=== PATIENT | female | born 1940 | race Caucasian/White ===

== ENCOUNTER 2016-10-16 15:45 | Emergency (ER) | payer MEDICARE ==
[~2016-10-16] VITALS: Ht 149.9 cm; Wt 48.0 kg
[~2016-10-16 15:45] MED LIST: ALBU8I INH; AMLO5TAB22 PO; ASPI81TA11 PO; LOSA50TA PO; METO25 PO; PLAV75TA PO; VITA20002 PO
[2016-10-16 15:47] VITALS: BP 143/81; PULSE 78; RESP 15; TEMP 97.8; O2SAT 98
--- NOTE | 2016-10-16 15:55 | PD ---
Physical Exam Time Seen by Provider: 15:50 Narrative 76yo F c/o mid-Sternal chest pain started Sunday w/ Left arm weakness and hand tingling; w/ SOB. Hx COPD. 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 Patient stable. Patient seen in triage. Awaiting bed placement. Data Data Last Documented VS Vital Signs Date Time Temp Pulse Resp B/P Pulse Ox O2 Delivery O2 Flow Rate FiO2 10/16/16 15:47 97.8 78 15 143/81 98 MDM Supervised Visit with KOREY: Marcela Ny Oct 16, 2016 15:55
--- NOTE | 2016-10-17 08:58 | EKG ---
Date Performed: 10/16/2016 Time Performed: 16:04:37 PTAGE: 76 years EKG: Sinus rhythm NONSPECIFIC ST & T-WAVE ABNORMALITY BORDERLINE ECG PREVIOUS TRACING : 04/21/2015 11.08 Compared to previous tracing, nonspecific ST/T changes are now present. DOCTOR: Price Au Interpretating Date/Time 10/17/2016 08:57:31
== END 2016-10-16 17:16 | disposition left against medical advice (07) ==
LOC: NED 15:45
DX: R07.9 Chest pain, unspecified (principal); R20.2 Paresthesia of skin; R06.02 Shortness of breath; Z87.09 Personal history of other diseases of the respiratory system
CPT/HCPCS: 93005; 99281

== ENCOUNTER 2018-06-10 16:14 | Observation (INO) ==
--- NOTE | 2018-06-10 16:52 | ED ---
HPI General Chief Complaint: Shortness of Breath/Dyspnea Stated Complaint: MD sent-poss surgery Time Seen by Provider: 06/10/18 16:40 Source: patient and RN notes reviewed Mode of arrival: ambulatory Limitations: no limitations History of Present Illness 77-year-old female presents to the emergency department stating she was sent by her primary care physician on Sunday to have fluid removed from her lungs. Patient states that she has been short of breath for the past 2 weeks. She does have history of COPD and has been using nebulizers at home. She states that she had a chest x-ray done outpatient on Sunday and was called by her primary care physician, Dr. Dwight Garza and was instructed to come the emergency department then. However, she is able to take care of so she comes today. Patient reports shortness of breath. She denies chest pain. No abdominal pain. No nausea, vomiting, diarrhea. She denies any history of CHF. No other symptoms or complaints. Moderate severity. MD Complaint: Reports shortness of breath Onset (ago): week(s) (2) Severity: moderate Consistency/Duration: constant Relieving factors: nothing Exacerbating factors: nothing Known history of: Reports COPD Associated symptoms: Denies chest pain, pain with inspiration, fever, cough, orthopnea, lower extremity pain, polyuria, polydipsia, paresthesias, palpitations, carpopedal spasm, hemoptysis, nausea/vomiting and abdominal pain Related Data Home Medications Medication Instructions Recorded Confirmed albuterol sulfate [Ventolin HFA] 2 puff INHALATION QID 06/10/18 06/10/18 amlodipine 5 mg PO DAILY 06/10/18 06/10/18 aspirin [Aspirin Low Dose] 81 mg PO DAILY 06/10/18 06/10/18 cholecalciferol (vitamin D3) 3,000 unit PO DAILY 06/10/18 06/10/18 [Vitamin D3] clopidogrel [Plavix] 75 mg PO DAILY 06/10/18 06/10/18 losartan 50 mg PO DAILY 06/10/18 06/10/18 metoprolol tartrate 25 mg PO BID 06/10/18 06/10/18 Allergies Allergy/AdvReac Type Severity Reaction Status Date / Time diatrizoate meglumine Allergy Severe Unverified 02/06/17 14:30 gadobenic acid Allergy Severe Unverified 02/06/17 14:30 gadodiamide Allergy Severe Unverified 02/06/17 14:30 gadoteridol Allergy Severe Unverified 02/06/17 14:30 iodixanol Allergy Severe Unverified 02/06/17 14:30 iohexol Allergy Severe Unverified 02/06/17 14:30 Review of Systems ROS: all other systems reviewed are negative [facility] Medical History Medical History COPD (chronic obstructive pulmonary disease) (Acute) DVT (deep venous thrombosis) (Acute) Hypertension (Acute) Kidney carcinoma (Acute) AK (myocardial infarction) (Acute) Surgical History Surgical History S/P appy (Acute) Social History Social History Substance History: No History of Abuse Smoking Status: Current some day smoker Tobacco Type: Cigarettes How Often Do You Have a Drink Containing Alcohol: Monthly or less Recent Travel in [facility] within the Last 8 Weeks: No Recent Out of Country Travel within the Last 8 Weeks: No Exam Narrative Exam Narrative: GENERAL: Well-nourished, well-developed male patient, afebrile SKIN: Focused skin assessment warm/dry. HEAD: Normocephalic. atraumatic EYES: No scleral icterus. No injection or drainage. NECK: Supple, trachea midline. No JVD or lymphadenopathy. CARDIOVASCULAR: Regular rate and rhythm without murmurs, gallops, or rubs. RESPIRATORY: Breath sounds equal bilaterally. Patient is tachypneic. Diminished lung sounds in the right base. GASTROINTESTINAL: Abdomen soft, non-tender, nondistended. MUSCULOSKELETAL: No cyanosis, or edema. BACK: Nontender without obvious deformity. No CVA tenderness. Course Initial Documented Vital Signs Temperature 98.1 F 06/10/18 16:19 Pulse Rate 105 H 06/10/18 16:19 Respiratory Rate 24 06/10/18 16:19 Blood Pressure 143/62 H 06/10/18 16:19 Pulse Oximetry 97 06/10/18 16:19 Last Documented Vital Signs Temperature 98.1 F 06/10/18 16:19 Pulse Rate 92 H 06/10/18 18:50 Respiratory Rate 18 06/10/18 18:50 Blood Pressure 119/67 06/10/18 16:22 Pulse Oximetry 96 06/10/18 16:43 Medical Decision Making KOREY Attestation KOREY supervised visit: Yes Attestation: I, Dr. Easton, have reviewed the advance practice practitioner' s documentation and am in agreement, met with the patient face to face, made the diagnosis, and the medical decision making was done by me. *My assessment and Findings: 77-year-old female who presents to the emergency department for shortness of breath. Patient has had increasing exertional dyspnea for the last several weeks which is progressively worsened. The patient now has difficulty walking from the parking lot into the store and from her house to her car secondary to the shortness of breath. The patient does have a history of COPD and pneumonia. The patient denies any history of CHF. The patient was seen by her primary physician, Dr. Dwight Garza, who ordered an x-ray revealed an effusion. The patient was advised last week to come the emergency department and be admitted to have it drained, however, did not come to the emergency department until the day. The patient's symptoms are better if she lays on the right side or on her stomach, is worse when she lays supine and with exertion. Symptoms are moderate and progressive. Chest x-ray does reveal a right pleural effusion, the patient will be a 23-hour observation for ultrasound to evaluate for possible ultrasound-guided thoracentesis. The patient may also benefit from echocardiogram for possible cardiomyopathy/CHF. That echo on-call ON [facility] OF [facility] physician was paged for 23-hour observation. MDM Narrative Medical decision making narrative: 77-year-old female presents to the emergency department for evaluation of shortness of breath for 2 weeks, sent by her primary care physician for. EKG shows sinus rhythm, heart rate 95, no acute ST changes. CBC, CMP, CK, troponin, magnesium, BNP, PTT, PT/INR, chest x-ray ordered and pending. CBC shows slight anemia hemoglobin 10.5, hematocrit 30.3. CMP shows no acute abnormality. CK is 50. Troponin is less than 0.02. BNP is 95. PTT is 29.0. PT/INR is 10.0/1.0. Chest x-ray shows Hyperinflation characteristic of COPD.2. Small right pleural effusion and right basilar density could be atelectasis or infiltrate. Patient will be admitted for possible ultrasound-guided thoracentesis, echocardiogram for possible cardiomyopathy/CHF as she has exertional dyspnea. Dr. Cuellar accepted admission. Medical Screen Exam Complete: Yes Emergency Medical Condition: Yes Differential Diagnosis Differential Diagnosis: pleural effusion vs. CHF vs. COPD exacerbation vs. PE Medical Records Medical records reviewed: Yes I reviewed the patient's medical records. Lab Data Result diagrams: 06/10/18 17:05 06/10/18 17:05 Lab Results 06/10/18 06/10/18 06/10/18 Range/Units 17:05 17:05 17:05 WBC 10.9 (4.0-11.0) th/mm3 RBC 3.59 L (4.00-5.30) mil/mm3 Hgb 10.5 L (11.6-15.3) gm/dL Hct 30.3 L (35.0-46.0) % MCV 84.5 (80.0-100.0) fL MCH 29.4 (27.0-34.0) pg MCHC 34.8 (32.0-36.0) % RDW 15.3 (11.6-17.2) % Plt Count 673 H (150-450) th/mm3 MPV 7.1 (7.0-11.0) fL Neut % (Auto) 76.6 H (16.0-70.0) % Lymph % (Auto) 10.8 (9.0-44.0) % Perkins % (Auto) 11.1 H (0.0-8.0) % Eos % (Auto) 0.4 (0.0-4.0) % Baso % (Auto) 1.1 (0.0-2.0) % Neut # (Auto) 8.3 H (1.8-7.7) th/mm3 Lymph # (Auto) 1.2 (1.0-4.8) th/mm3 Perkins # (Auto) 1.2 H (0.0-0.9) th/mm3 Eos # (Auto) 0.0 (0.0-0.4) th/mm3 Baso # (Auto) 0.1 (0.0-0.2) th/mm3 WBC Differential . Differential Comment Auto diff final PT 10.0 (9.8-11.6) sec INR 1.0 Ratio APTT 29.0 (23.4-31.7) sec Sodium 139 (136-145) meq/L Potassium 4.0 (3.5-5.1) meq/L Chloride 106 (98-107) meq/L Carbon Dioxide 20.7 L (21.0-32.0) meq/L Anion Gap 12 (5-15) meq/L BUN 14 (7-18) mg/dL Creatinine 0.77 (0.50-1.00) mg/dL Estimated GFR 73 L (>89) mL/min Random Glucose 111 H (74-106) mg/dL Calcium 8.5 (8.5-10.1) mg/dL Magnesium 2.2 (1.5-2.5) mg/dL Total Bilirubin 0.3 (0.2-1.0) mg/dL AST 26 (15-37) U/L ALT 27 (10-53) U/L Alkaline Phosphatase 112 (45-117) U/L Total Creatine Kinase 50 (26-192) U/L Troponin I Less than 0.02 L (0.02-0.05) ng/mL B-Natriuretic Peptide (0-100) pg/mL Total Protein 7.1 (6.4-8.2) g/dL Albumin 2.1 L (3.4-5.0) g/dL 06/10/18 Range/Units 17:05 WBC (4.0-11.0) th/mm3 RBC (4.00-5.30) mil/mm3 Hgb (11.6-15.3) gm/dL Hct (35.0-46.0) % MCV (80.0-100.0) fL MCH (27.0-34.0) pg MCHC (32.0-36.0) % RDW (11.6-17.2) % Plt Count (150-450) th/mm3 MPV (7.0-11.0) fL Neut % (Auto) (16.0-70.0) % Lymph % (Auto) (9.0-44.0) % Perkins % (Auto) (0.0-8.0) % Eos % (Auto) (0.0-4.0) % Baso % (Auto) (0.0-2.0) % Neut # (Auto) (1.8-7.7) th/mm3 Lymph # (Auto) (1.0-4.8) th/mm3 Perkins # (Auto) (0.0-0.9) th/mm3 Eos # (Auto) (0.0-0.4) th/mm3 Baso # (Auto) (0.0-0.2) th/mm3 WBC Differential Differential Comment PT (9.8-11.6) sec INR Ratio APTT (23.4-31.7) sec Sodium (136-145) meq/L Potassium (3.5-5.1) meq/L Chloride (98-107) meq/L Carbon Dioxide (21.0-32.0) meq/L Anion Gap (5-15) meq/L BUN (7-18) mg/dL Creatinine (0.50-1.00) mg/dL Estimated GFR (>89) mL/min Random Glucose (74-106) mg/dL Calcium (8.5-10.1) mg/dL Magnesium (1.5-2.5) mg/dL Total Bilirubin (0.2-1.0) mg/dL AST (15-37) U/L ALT (10-53) U/L Alkaline Phosphatase (45-117) U/L Total Creatine Kinase (26-192) U/L Troponin I (0.02-0.05) ng/mL B-Natriuretic Peptide 95 (0-100) pg/mL Total Protein (6.4-8.2) g/dL Albumin (3.4-5.0) g/dL Imaging Data Radiologist's impression: Chest X-Ray 06/10/18 16:43 CONCLUSION: 1. Hyperinflation characteristic of COPD. 2. Small right pleural effusion and right basilar density could be atelectasis or infiltrate. Discharge Plan Discharge Disposition Patient Disposition: ED Admit(ED Internal Use Only) Discharge Order Discharge Orders: ED Use Only Admit Order (Routine); Ordered 06/10/18 Ordered By: Afshan Camarena Discharge Details Diagnosis: Exertional dyspnea, Pleural effusion Physicians Team ED Provider: Wes Easton ED Midlevel Provider: Afshan Camarena Primary Care Provider: Dwight Garza Rxs /Orders / Referrals /Forms Prescriptions: No Action losartan 50 mg Tablet 50 mg PO DAILY RF: 0 clopidogrel [Plavix] 75 mg Tablet 75 mg PO DAILY RF: 0 amlodipine 5 mg Tablet 5 mg PO DAILY RF: 0 aspirin [Aspirin Low Dose] 81 mg Tablet,Delayed Release (Dr/Ec) 81 mg PO DAILY RF: 0 albuterol sulfate [Ventolin HFA] 90 mcg/actuation Hfa Aerosol Inhaler 2 puff INHALATION QID RF: 0 cholecalciferol (vitamin D3) [Vitamin D3] 1,000 unit Capsule 3,000 unit PO DAILY RF: 0 metoprolol tartrate 25 mg Tablet 25 mg PO BID RF: 0 Discharge Interventions Interventions: Vital Signs Last Done: 06/10/18 16:22 Status ED Status: Pending Admission
--- NOTE | 2018-06-10 17:08 | XR ---
EXAM DATE: 06/10/2018 5:04 PM EST AGE/SEX: 77 years / Female INDICATIONS: Short of breath. CLINICAL DATA: This is the patient's initial encounter. Patient reports that signs and symptoms have been present for 2 days and indicates a pain score of 0/10. MEDICAL/SURGICAL HISTORY: Chronic obstructive pulmonary disease. None. COMPARISON: . FINDINGS: A single AP view of the chest demonstrates hyperinflation. Small right pleural effusion and right bas ilar density. Calcified granuloma right upper lobe. Tortuous thoracic aorta. Scoliosis The cardiomedi astinal contours are unremarkable. Osseous structures are intact. CONCLUSION: 1. Hyperinflation characteristic of COPD. 2. Small right pleural effusion and right basilar density could be atelectasis or infiltrate. Electronically signed by: Ang Martinez MD Board Certified Radiologist 06/10/2018 5:07 PM EST
[2018-06-10 17:34] LABS: Baso # (Auto) 0.1 th/mm3 (0.0-0.2); Baso % (Auto) 1.1 % (0.0-2.0); Eos % (Auto) 0.4 % (0.0-4.0); Hematocrit 30.3 % (35.0-46.0); Hemoglobin 10.5 gm/dL (11.6-15.3); Lymph # (Auto) 1.2 th/mm3 (1.0-4.8); Lymph % (Auto) 10.8 % (9.0-44.0); Mean Corpuscular HGB Conc 34.8 % (32.0-36.0); Mean Corpuscular Hemoglobin 29.4 pg (27.0-34.0); Mean Corpuscular Volume 84.5 fL (80.0-100.0); Mean Platelet Volume 7.1 fL (7.0-11.0); Mono # (Auto) 1.2 th/mm3 (0.0-0.9); Mono % (Auto) 11.1 % (0.0-8.0); Neut # (Auto) 8.3 th/mm3 (1.8-7.7); Neut % (Auto) 76.6 % (16.0-70.0); Platelet Count 673 th/mm3 (150-450); Red Blood Count 3.59 mil/mm3 (4.00-5.30); Red Cell Distribution Width 15.3 % (11.6-17.2); White Blood Count 10.9 th/mm3 (4.0-11.0)
[2018-06-10 17:59] LABS: Albumin 2.1 g/dL (3.4-5.0); Anion Gap 12 meq/L (5-15); Aspartate Aminotransferase 26 U/L (15-37); Blood Urea Nitrogen 14 mg/dL (7-18); Calcium 8.5 mg/dL (8.5-10.1); Carbon Dioxide 20.7 meq/L (21.0-32.0); Chloride 106 meq/L (98-107); Glomerular Filtration Rate 73 mL/min (>89); Glucose,Random 111 mg/dL (74-106); Magnesium 2.2 mg/dL (1.5-2.5); Sodium 139 meq/L (136-145)
[2018-06-10 18:06] LABS: Alanine Aminotransferase 27 U/L (10-53); Alkaline Phosphatase 112 U/L (45-117); Creatine Kinase 50 U/L (26-192); Total Protein 7.1 g/dL (6.4-8.2)
[2018-06-10] MEDS ORDERED: Acetaminophen 325 MG Tablet PO PRN (20:09)
[2018-06-10] MEDS ORDERED: Bisacodyl 10 MG Supp RECTAL PRN (20:09)
--- NOTE | 2018-06-10 20:20 | P.HPFP ---
History of Present Illness Primary Care Physician: Dwight Garza MD History of Present Illness: This is a very pleasant 77-year-old female, a patient of Dr. Garza, who presented to the ER today for shortness of breath. The patient endorses that she has been having increased shortness of breath for the past [address] Garza on Sunday who ordered a chest x-ray showing a moderate right pleural effusion. She was instructed to go to the emergency department however due to the of the patch she did not go. She called Dr. Garza's office today with ongoing shortness of breath and was referred to the emergency department where she has now presented. The patient has a pulse ox of 96% on room air but endorses significant dyspnea. She denies any recent fever, chills , or cough. She does have known history of COPD and is on bronchodilators for this. She reports she was ill with influenza in February and since then her exercise tolerance has been quite poor, especially over the past 3 weeks with difficulty walking throughout the grocery store and with placing housing for sale signs. 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 - Diagnosis (1) Pleural effusion, right (2) Exertional dyspnea (3) Thrombocytosis Review of Systems All other systems reviewed negative except as stated in HPI [facility] - History History Provided By: Patient - Medical History Medical History: Medical History (Last Updated 06/10/18 @ 16:59 by Caty Shafer) COPD (chronic obstructive pulmonary disease) DVT (deep venous thrombosis) Hypertension Kidney carcinoma LA (myocardial infarction) - Surgical History Surgical History: Surgical History (Last Updated 06/10/18 @ 16:59 by Caty Shafer) S/P appy - Tobacco History Tobacco Use In Past 30 Days: Yes Smoking Status: Current some day smoker Tobacco Type: Cigarettes - Alcohol History How Often Do You Have a Drink Containing Alcohol: Monthly or less - Substance Use History Substance History: No History of Abuse - Travel History Recent Travel in the [facility] Within the Last 8 Weeks: No Recent Travel Out of the Country Within the Last 8 Weeks: No - Immunization History Tetanus Immunization: Unsure Medications and Allergies Active Medications: Active Medications Acetaminophen (Tylenol) 650 mg PO Q4H PRN PRN Reason: Temp > 100.4 Al Hydroxide/Mg Hydroxide (Milk Of Magnesia Liq) 30 ml PO Q12H PRN PRN Reason: Mild Constipation Albuterol (Duoneb Neb (Walter)) 1 ampul NEB Q6HR WHILE AWAKE NEB [facility] Aspirin (Ecotrin) 81 mg PO DAILY [facility] Bisacodyl (Dulcolax Supp) 10 mg RECTAL DAILY PRN PRN Reason: SEVERE CONSITIPATION Clopidogrel Bisulfate (Plavix) 75 mg PO DAILY [facility] Famotidine (Pepcid) 20 mg PO HS [facility] Lactulose (Lactulose Liq) 30 ml PO DAILY PRN PRN Reason: SEVERE CONSITIPATION Losartan Potassium (Cozaar) 100 mg PO DAILY [facility] Methylprednisolone Sodium Succinate (Solumedrol Inj) 125 mg IV.PUSH ONCE ONE Stop: 06/10/18 20:12 Metoprolol Tartrate (Lopressor) 25 mg PO BID [facility] Ondansetron HCl (Zofran Inj) 4 mg IV.PUSH Q6H PRN PRN Reason: NAUSEA OR VOMITING Sennosides (Senokot) 17.2 mg PO Q12H PRN PRN Reason: Moderate Constipation Sodium Chloride (Ns Flush) 2 ml IV.FLUSH BID [facility] Vitamin D (Vitamin D3) 3,000 unit PO DAILY [facility] Allergies Allergy/AdvReac Type Severity Reaction Status Date / Time diatrizoate meglumine Allergy Severe Unverified 02/06/17 14:30 gadobenic acid Allergy Severe Unverified 02/06/17 14:30 gadodiamide Allergy Severe Unverified 02/06/17 14:30 gadoteridol Allergy Severe Unverified 02/06/17 14:30 iodixanol Allergy Severe Unverified 02/06/17 14:30 iohexol Allergy Severe Unverified 02/06/17 14:30 Home Medications Medication Instructions Recorded Confirmed Type albuterol sulfate [Ventolin HFA] 2 puff INHALATION QID 06/10/18 06/10/18 History amlodipine 5 mg PO DAILY 06/10/18 06/10/18 History aspirin [Aspirin Low Dose] 81 mg PO DAILY 06/10/18 06/10/18 History cholecalciferol (vitamin D3) 3,000 unit PO DAILY 06/10/18 06/10/18 History [Vitamin D3] clopidogrel [Plavix] 75 mg PO DAILY 06/10/18 06/10/18 History losartan 50 mg PO DAILY 06/10/18 06/10/18 History metoprolol tartrate 25 mg PO BID 06/10/18 06/10/18 History Exam Vital signs: Vital Signs 06/10/18 16:19 06/10/18 16:22 06/10/18 16:43 Temperature 98.1 F Pulse Rate 105 H 92 H Respiratory Rate 24 18 Blood Pressure 143/62 H 119/67 Pulse Oximetry 97 96 96 06/10/18 18:50 Temperature Pulse Rate 92 H Respiratory Rate 18 Blood Pressure Pulse Oximetry Intake & Output 06/10/18 06/10/18 06/11/18 06:59 18:59 06:59 Weight 39.463 kg Narrative: GENERAL: This is a petite, cachectic appearing elderly female who is in mild respiratory distress but speaking in full sentences. HEENT: Moist mucous membranes, oropharynx patent, pupils equal and reactive to light Neck: Supple without lymphadenopathy or JVD CARDIOVASCULAR: Regular rate and rhythm without murmurs, gallops, or rubs. RESPIRATORY: Decreased breath sounds in right mid to lower lung field. Otherwise lungs are clear to auscultation without wheezes rhonchi. Pulse ox 96 % on room air. Mild increased work of breathing. GASTROINTESTINAL: Abdomen soft, non-tender, nondistended. Normal active bowel sounds MUSCULOSKELETAL: Extremities without clubbing, cyanosis, or edema. She has excellent dorsalis pedis pulses bilaterally. NEURO: Alert & Oriented x4 to person, place, time, situation. Moves all ext x4 SKIN: Warm and dry without rash Results - Labs Result diagrams: 06/10/18 17:05 06/10/18 17:05 Abnormal lab results 06/10/18 06/10/18 Range/Units 17:05 17:05 RBC 3.59 L (4.00-5.30) mil/mm3 Hgb 10.5 L (11.6-15.3) gm/dL Hct 30.3 L (35.0-46.0) % Plt Count 673 H (150-450) th/mm3 Neut % (Auto) 76.6 H (16.0-70.0) % Collier % (Auto) 11.1 H (0.0-8.0) % Neut # (Auto) 8.3 H (1.8-7.7) th/mm3 Collier # (Auto) 1.2 H (0.0-0.9) th/mm3 Carbon Dioxide 20.7 L (21.0-32.0) meq/L Estimated GFR 73 L (>89) mL/min Random Glucose 111 H (74-106) mg/dL Troponin I Less than 0.02 L (0.02-0.05) ng/mL Albumin 2.1 L (3.4-5.0) g/dL Short CBC 06/10/18 Range/Units 17:05 WBC 10.9 (4.0-11.0) th/mm3 Hgb 10.5 L (11.6-15.3) gm/dL Hct 30.3 L (35.0-46.0) % Plt Count 673 H (150-450) th/mm3 BMP 06/10/18 17:05 Sodium 139 Potassium 4.0 Chloride 106 Carbon Dioxide 20.7 L BUN 14 Creatinine 0.77 Calcium 8.5 Cardiac Enzymes 06/10/18 Range/Units 17:05 Total Creatine Kinase 50 (26-192) U/L Troponin I Less than 0.02 L (0.02-0.05) ng/mL Liver Function 06/10/18 Range/Units 17:05 Total Bilirubin 0.3 (0.2-1.0) mg/dL AST 26 (15-37) U/L ALT 27 (10-53) U/L Alkaline Phosphatase 112 (45-117) U/L Albumin 2.1 L (3.4-5.0) g/dL - Imaging Impressions Chest X-Ray 06/10/18 16:43 CONCLUSION: 1. Hyperinflation characteristic of COPD. 2. Small right pleural effusion and right basilar density could be atelectasis or infiltrate. Caprini VTE Risk Assessment Caprini VTE Risk Assessment: Moderate/High Risk (score >= 2) Caprini Risk Assessment Model: Point Value = 1 Point Value = 2 Point Value = 3 Point Value = 5 Age 41-60 Minor surgery BMI > 25 kg/m2 Swollen legs Varicose veins or History of unexplained or recurrent spontaneous Oral contraceptives or hormone replacement Sepsis (< 1 month) Serious lung disease, including pneumonia (< 1 month) Abnormal pulmonary function Acute myocardial infarction Congestive heart failure (< 1 month) History of inflammatory bowel disease Medical patient at bed rest Age 61-74 Arthroscopic surgery Major open surgery (> 45 min) Laparoscopic surgery (> 45 min) Malignancy Confined to bed (> 72 hours) Immobilizing plaster cast Central venous access Age >= 75 History of VTE Family history of VTE Factor V Leiden Prothrombin [id number] Lupus anticoagulant Anticardiolipin antibodies Elevated serum homocysteine Heparin-induced thrombocytopenia Other congenital or acquired thrombophilia Stroke (< 1 month) Elective arthroplasty Hip, pelvis, or leg fracture Acute spinal cord injury (< 1 month) Prophylaxis Regimen: Total Risk Factor Score Risk Level Prophylaxis Regimen 0-1 Low Early ambulation 2 Moderate Order ONE of the following: *Sequential Compression Device (SCD) *Heparin 5000 units SQ BID 3-4 Higher Order ONE of the following medications: *Heparin 5000 units SQ TID *Enoxaparin/Lovenox 40 mg SQ daily (WT < 150 kg, CrCl > 30 mL/min) *Enoxaparin/Lovenox 30 mg SQ daily (WT < 150 kg, CrCl > 10-29 mL/min) *Enoxaparin/Lovenox 30 mg SQ BID (WT < 150 kg, CrCl > 30 mL/min) AND/OR *Sequential Compression Device (SCD) 5 or more Highest Order ONE of the following medications: *Heparin 5000 units SQ TID (Preferred with Epidurals) *Enoxaparin/Lovenox 40 mg SQ daily (WT < 150 kg, CrCl > 30 mL/min) *Enoxaparin/Lovenox 30 mg SQ daily (WT < 150 kg, CrCl > 10-29 mL/min) *Enoxaparin/Lovenox 30 mg SQ BID (WT < 150 kg, CrCl > 30 mL/min) AND *Sequential Compression Device (SCD) Assessment and Plan - Assessment (1) Pleural effusion, right Code(s): J90 - Pleural effusion, not elsewhere classified Status: Acute (2) Exertional dyspnea Code(s): R06.09 - Other forms of dyspnea Status: Acute (3) Thrombocytosis Code(s): D47.3 - Essential (hemorrhagic) thrombocythemia Status: Acute - Assessment and Plan We will plan for ultrasound tomorrow morning to see if right thoracentesis can be performed. Etiology of the pleural effusion is not clear at this time. I will check a 2D echocardiogram. Consider pulmonology consultation. Will continue on her bronchodilators. She is currently not requiring oxygen. I will place her on telemetry. Oxygen as needed and I will obtain an oxygen walk test with the respiratory therapist. I will give her a one-time dose of Solu- Medrol to see if this assists with her breathing however I do not hear any wheezing on exam. The thrombocytosis seems to be a new problem as per review of her previous labs. We will repeat a CBC in the morning. Coronary artery disease status post RCA stent in 2002 and 2014, Peripheral arterial disease status post right external artery stent in 2014 -continue aspirin, Plavix. Apparently she is statin intolerant. Continue her on the beta -flavia and ARB. DVT prophylaxis with SCDs.
[2018-06-10] MEDS ORDERED: levoFLOXacin 750 MG Tablet PO SCH (21:00)
[2018-06-10] MEDS ORDERED: MethylPREDNISolone Sod Succinate Inj 125 MG/2 ML Vial IV.PUSH ONE (21:00)
[2018-06-10] MEDS: Famotidine 20 MG Tablet PO SCH ×2 (23:10→23:24)
[2018-06-10] MEDS: Metoprolol Tartrate 25 MG Tablet PO SCH (23:10)
[2018-06-11 07:01] LABS: Baso % (Auto) 0.3 % (0.0-2.0); Hematocrit 32.3 % (35.0-46.0); Hemoglobin 10.7 gm/dL (11.6-15.3); Lymph # (Auto) 0.5 th/mm3 (1.0-4.8); Lymph % (Auto) 6.1 % (9.0-44.0); Mean Corpuscular HGB Conc 33.1 % (32.0-36.0); Mean Corpuscular Hemoglobin 28.2 pg (27.0-34.0); Mean Corpuscular Volume 85.3 fL (80.0-100.0); Mean Platelet Volume 7.3 fL (7.0-11.0); Mono # (Auto) 0.2 th/mm3 (0.0-0.9); Mono % (Auto) 2.4 % (0.0-8.0); Neut # (Auto) 7.5 th/mm3 (1.8-7.7); Neut % (Auto) 91.2 % (16.0-70.0); Platelet Count 667 th/mm3 (150-450); Red Blood Count 3.78 mil/mm3 (4.00-5.30); Red Cell Distribution Width 14.9 % (11.6-17.2); White Blood Count 8.2 th/mm3 (4.0-11.0)
[2018-06-11 07:19] LABS: Calcium 8.9 mg/dL (8.5-10.1); Carbon Dioxide 20.2 meq/L (21.0-32.0); Potassium 4.4 meq/L (3.5-5.1)
[2018-06-11] MEDS: Metoprolol Tartrate 25 MG Tablet PO SCH (09:48)
--- NOTE | 2018-06-11 11:09 | P.PNIM ---
Subjective Interval history: No new complaints. Physical Exam Vital signs: Last Vital Signs Temp 97.7 F 06/11/18 08:00 Pulse 81 06/11/18 08:15 Resp 16 06/11/18 08:15 BP 109/58 L 06/11/18 08:00 Pulse Ox 98 06/11/18 10:22 Narrative: GENERAL: This is a well-nourished, well-developed patient, in no apparent distress. CARDIOVASCULAR: Regular rate and rhythm without murmurs, gallops, or rubs. RESPIRATORY: Clear to auscultation. Breath sounds equal bilaterally. No wheezes , rales, or rhonchi. GASTROINTESTINAL: Abdomen soft, non-tender, nondistended. Normal active bowel sounds MUSCULOSKELETAL: Extremities without clubbing, cyanosis, or edema. NEURO: Alert & Oriented x4 to person, place, time, situation. Moves all ext x4 Results Labs CBC & Chem 7: 06/12/18 05:31 06/12/18 05:31 Assessment and Plan Assessment (1) Pleural effusion, right: Code(s): J90 - Pleural effusion, not elsewhere classified Status: Acute (2) Exertional dyspnea: Code(s): R06.09 - Other forms of dyspnea Status: Acute (3) Thrombocytosis: Code(s): D47.3 - Essential (hemorrhagic) thrombocythemia Status: Acute Plan This is a very pleasant 77-year-old female, a patient of Dr. Garza, who presented to the ER today for shortness of breath. The patient endorses that she has been having increased shortness of breath for the past [address] Garza on Sunday who ordered a chest x-ray showing a moderate right pleural effusion. She was instructed to go to the emergency department however due to the of the patch she did not go. She called Dr. Garza's office today with ongoing shortness of breath and was referred to the emergency department where she has now presented. The patient has a pulse ox of 96% on room air but endorses significant dyspnea. She denies any recent fever, chills , or cough. She does have known history of COPD and is on bronchodilators for this. She reports she was ill with influenza in February and since then her exercise tolerance has been quite poor, especially over the past 3 weeks with difficulty walking throughout the grocery store and with placing housing for sale signs. Pleural Effusion Dyspnea - thoracentesis (06/11) --> 550ml of fluid removed - pleural fluids to lab for analysis - echocardiogram (06/11) --> EF 55-60%, no hypokinesis - received solumedrol 125mg (06/10) - duonebs - levaquin - pt tolerating RA Thrombocytosis - plt 673 (06/10) 667 (06/01) - unclear etiology CAD - s/p RCA stent 2012, 2014 - statin intolerant - BB, ARB, ASA, plavix PAD - s/p LE stendt with revascularization 2014 - ASA, plavix HTN - stable - cozaar, metoprolol Progress Note: Quality VTE Deep Vein Thrombosis/Pulmonary Embolism Present on Admission: No
--- NOTE | 2018-06-11 11:16 | XR ---
EXAM DATE: 06/11/2018 11:11 AM EST AGE/SEX: 77 years / Female INDICATIONS: Post right thoracentesis CLINICAL DATA: This is the patient's initial encounter. Patient reports that signs and symptoms have been present for 1 day and indicates a pain score of 0/10. MEDICAL/SURGICAL HISTORY: Chronic obstructive pulmonary disease. . 3 cardiac stents COMPARISON: [facility] [place], CHEST 1V SINGLE AP, 06/10/2018. . FINDINGS: Portable AP upright single view of the chest demonstrates a normal-sized cardiac silhouette with calc ification of the aorta. The right pleural-based opacity has resolved. Calcified granuloma in the righ t midlung zone is stable. No pneumothorax is identified. There is thoracolumbar scoliosis. CONCLUSION: Resolution of the right pleural-based opacity. No pneumothorax is visualized. Electronically signed by: Jt Weber MD Board Certified Radiologist 06/11/2018 11:15 AM EST
--- NOTE | 2018-06-11 11:24 | US ---
EXAM DATE: 06/11/2018 11:11 AM EST AGE/SEX: 77 years / Female INDICATIONS: Right pleural effusion. CLINICAL DATA: This is the patient's initial encounter. Patient reports that signs and symptoms have been present for 3 days and indicates a pain score of 0/10. MEDICAL/SURGICAL HISTORY: Chronic obstructive pulmonary disease. Hypertension. Deep venous th rombosis. Kidney Carcinoma. Myocardial infarction. CAD. PVD. Hyperlipidemia. COPD. HTN. CKD. Appendectomy. Hysterectomy. RCA stent. Left nephrectomy. Carotid endarterectomy. COMPARISON: . FLUID: Total volume of . cc of cloudy, yellow fluid was removed. Fluid was sent to lab for ordered studies. . . TECHNIQUE: Ultrasound guidance for thoracentesis. Thoracentesis. The risks, benefits, and alternatives to ultrasound guided thoracentesis were explained to the patien t in lay simple terms, including the risk of bleeding and infection. Written and verbal informed con sent was obtained. Appropriate area for right thoracentesis was marked under ultrasound guidance with the patient in the upright position. Overlying skin was prepped and draped in the usual sterile fashion and with local anesthetic, a dermatotomy was made with an 11 blade scalpel. A 6 Palestinian thoracentesis catheter was placed in the pleural space and fluid was removed. Catheter was then removed and a sterile dressing applied. There were no immediate complications. The patient tolerated the procedure well and the lef t the ultrasound suite in stable condition. Chest radiograph is to be obtained. FINDINGS: Adequate fluid for thoracentesis. CONCLUSION: 1. Uncomplicated thoracentesis. Electronically signed by: Neeraj Miller MD Board Certified Radiologist 06/11/2018 11:23 AM E
[2018-06-11 12:31] LABS: Eosinophils,Pleural Fluid 4 %; Lymphocytes,Pleural Fluid 12 %; Mesothelial,Pleural Fluid 23 %; Monocytes,Pleural Fluid 1 %; Neutrophils,Pleural Fluid 26 %
[2018-06-11 12:39] LABS: RBC,Pleural Fluid 768 /mm3 (0-0)
[2018-06-11 12:55] LABS: Total Protein,Pleural Fluid 4.5 gm/dL
--- NOTE | 2018-06-11 15:36 | ECHRPT ---
Indication: Effusion CONCLUSIONS Normal left ventricular size. Wall thickness is measured at the upper limits of normal. The left ventricular systolic function is normal with an estimated ejection fraction in the range of 55-60%. No regional wall motion abnormalities are present. Mild mitral valve regurgitation. Minimal ortic valve sclerosis is present. There is trace tricuspid valve regurgitation. The estimated pulmonary arterial pressure is 33 mmHg. BP: / HR: Rhythm: MEASUREMENTS (Male / Female) Normal Values Technical Quality:Fair 2D ECHO LV Diastolic Diameter PLAX 4.0 cm 4.2 - 5.9 / 3.9 - 5.3 cm LV Systolic Diameter PLAX 2.7 cm IVS Diastolic Thickness 1.0 cm 0.6 - 1.0 / 0.6 - 0.9 cm LVPW Diastolic Thickness 0.9 cm 0.6 - 1.0 / 0.6 - 0.9 cm LV Relative Wall Thickness 0.5 RV Internal Dim ED PLAX 2.4 cm LVOT Diameter 1.8 cm Aortic Root Diameter 2.7 cm LA Systolic Diameter LX 2.6 cm 3.0 - 4.0 / 2.7 - 3.8 cm DOPPLER AV Peak Velocity 165.0 cm/s AV Peak Gradient 10.9 mmHg LVOT Peak Velocity 120.0 cm/s LVOT Peak Gradient 5.8 mmHg AV Area Cont Eq pk 1.9 cm Mitral E Point Velocity 67.1 cm/s Mitral A Point Velocity 99.7 cm/s Mitral E to A Ratio 0.7 LV E' Lateral Velocity 11.6 cm/s Mitral E to LV E' Lateral Ratio 5.8 LV E' Septal Velocity 6.3 cm/s Mitral E to LV E' Septal Ratio 10.6 TR Peak Velocity 242.0 cm/s TR Peak Gradient 23.4 mmHg Right Atrial Pressure 10.0 mmHg Pulmonary Artery Systolic Pressu 33.4 mmHg Right Ventricular Systolic Press 33.4 mmHg PV Peak Velocity 97.7 cm/s PV Peak Gradient 3.8 mmHg FINDINGS LEFT VENTRICLE Normal left ventricular size. Wall thickness is measured at the upper limits of normal. The left ventricular systolic function is normal with an estimated ejection fraction in the range of 55-60%. No regional wall motion abnormalities are present. RIGHT VENTRICLE Normal right ventricular size and systolic function. LEFT ATRIUM The left atrial size is normal. RIGHT ATRIUM The right atrial size is normal. ATRIAL SEPTUM The interatrial septum is aneurysmal. AORTA The aortic root and proximal ascending aorta are normal in size on limited imaging. MITRAL VALVE Mild mitral valve regurgitation. AORTIC VALVE Trileaflet aortic valve. Minimal ortic valve sclerosis is present. TRICUSPID VALVE There is trace tricuspid valve regurgitation. The estimated pulmonary arterial pressure is 33 mmHg. PULMONARY VALVE No pulmonary valve regurgitation or stenosis. VESSELS The inferior vena cava is normal in size. PERICARDIUM There is a small pericardial effusion present. Price Au MD (Electronically Signed) Final Date:11 June 2018 15:35
--- NOTE | 2018-06-11 17:04 | ECG ---
Date Performed: 06/10/2018 Time Performed: 16:44:04 PTAGE: 77 years EKG: Sinus rhythm NORMAL ECG PREVIOUS TRACING : 10/16/2016 16.04 Since the previous tracing, no significant change noted DOCTOR: Collin Rosales Interpretating Date/Time 06/11/2018 17:03:23
[2018-06-12 07:07] LABS: Baso % (Auto) 0.1 % (0.0-2.0); Hematocrit 30.5 % (35.0-46.0); Hemoglobin 10.1 gm/dL (11.6-15.3); Lymph # (Auto) 0.4 th/mm3 (1.0-4.8); Lymph % (Auto) 3.6 % (9.0-44.0); Mean Corpuscular HGB Conc 33.1 % (32.0-36.0); Mean Corpuscular Hemoglobin 28.4 pg (27.0-34.0); Mean Corpuscular Volume 85.8 fL (80.0-100.0); Mean Platelet Volume 7.4 fL (7.0-11.0); Mono # (Auto) 0.4 th/mm3 (0.0-0.9); Mono % (Auto) 3.2 % (0.0-8.0); Neut # (Auto) 10.7 th/mm3 (1.8-7.7); Neut % (Auto) 93.1 % (16.0-70.0); Platelet Count 671 th/mm3 (150-450); Red Blood Count 3.55 mil/mm3 (4.00-5.30); Red Cell Distribution Width 15.1 % (11.6-17.2); White Blood Count 11.5 th/mm3 (4.0-11.0)
[2018-06-12 07:31] LABS: Calcium 9.1 mg/dL (8.5-10.1); Carbon Dioxide 19.9 meq/L (21.0-32.0); Magnesium 2.5 mg/dL (1.5-2.5); Potassium 4.5 meq/L (3.5-5.1)
[2018-06-12] MEDS: Metoprolol Tartrate 25 MG Tablet PO SCH (08:10)
[2018-06-12 08:28] VITALS: O2SAT 95
--- NOTE | 2018-06-12 09:31 | CT ---
EXAM DATE: 06/12/2018 9:27 AM EST AGE/SEX: 77 years / Female INDICATIONS: Short of breath. Pleural effusion. CLINICAL DATA: This is the patient's initial encounter. Patient reports that signs and symptoms have been present for 1 day and indicates a pain score of 0/10. MEDICAL/SURGICAL HISTORY: Chronic obstructive pulmonary disease. Hypertension. Myocardial infarct ion. Renal cancer. None. RADIATION DOSE: 3.58 CTDI (mGy) COMPARISON: No prior exams available for comparison. TECHNIQUE: Multiple contiguous axial images were obtained through the chest during bolus infusion of 68 ml Omnipaque 350 (iohexol) nonionic water-soluble contrast as a single exam dose. Images were obtained in suspended respiration using multiple row detector helical technique. Using automated exp osure control and adjustment of the mA and/or kV according to patient size, radiation dose was kept a s low as reasonably achievable to obtain optimal diagnostic quality images. DICOM format image data is available electronically for review and comparison. FINDINGS: Lungs: The lungs are moderately hyperinflated with trace pleural thickening on the right. There is a calcified granuloma in the right upper lobe. There are no suspicious lung lesions. Mediastinum: There is no axillary or mediastinal adenopathy. There is good visualization of the cent ral pulmonary vessels without evidence for central pulmonary emboli. There is no pericardial effusion . Moderate coronary calcifications Upper abdominal contents visualized are unremarkable exception of minimal splenic granulomas. CONCLUSION: 1. Moderate hyperinflation with minimal pleural thickening on the right. 2. Moderate to severe coronary calcifications 3. There is no pericardial effusion. Electronically signed by: Patel Harman MD Board Certified Radiologist 06/12/2018 9:30 AM EST
--- NOTE | 2018-06-12 11:27 | P.PNIM ---
Subjective Interval history: Patient on room air reports breathing is much better after thoracentesis Physical Exam Vital signs: Last Vital Signs Temp 97.4 F L 06/12/18 08:00 Pulse 95 H 06/12/18 08:00 Resp 18 06/12/18 08:00 BP 111/82 06/12/18 08:00 Pulse Ox 95 06/12/18 08:00 Narrative: GENERAL: This is a thin, well-developed patient, in no apparent distress. CARDIOVASCULAR: Regular rate and rhythm without murmurs, gallops, or rubs. RESPIRATORY: Clear to auscultation. Breath sounds equal bilaterally. No wheezes , rales, or rhonchi. GASTROINTESTINAL: Abdomen soft, non-tender, nondistended. Normal active bowel sounds MUSCULOSKELETAL: Extremities without clubbing, cyanosis, or edema. NEURO: Alert & Oriented x4 to person, place, time, situation. Moves all ext x4 Results Labs CBC & Chem 7: 06/12/18 05:31 06/12/18 05:31 Assessment and Plan Assessment (1) Pleural effusion, right: Code(s): J90 - Pleural effusion, not elsewhere classified Status: Acute (2) Exertional dyspnea: Code(s): R06.09 - Other forms of dyspnea Status: Acute (3) Thrombocytosis: Code(s): D47.3 - Essential (hemorrhagic) thrombocythemia Status: Acute Plan This is a very pleasant 77-year-old female, a patient of Dr. Garza, who presented to the ER today for shortness of breath. The patient endorses that she has been having increased shortness of breath for the past [address] Garza on Sunday who ordered a chest x-ray showing a moderate right pleural effusion. She was instructed to go to the emergency department however due to the of the patch she did not go. She called Dr. Garza's office today with ongoing shortness of breath and was referred to the emergency department where she has now presented. The patient has a pulse ox of 96% on room air but endorses significant dyspnea. She denies any recent fever, chills , or cough. She does have known history of COPD and is on bronchodilators for this. She reports she was ill with influenza in February and since then her exercise tolerance has been quite poor, especially over the past 3 weeks with difficulty walking throughout the grocery store and with placing housing for sale signs. Pleural Effusion Dyspnea - thoracentesis (06/11) --> 550ml of fluid removed - pleural fluid does appear to be exudative - pleural fluids cytology pending - echocardiogram (06/11) --> EF 55-60%, no hypokinesis - received solumedrol 125mg (06/10) - duonebs - levaquin - pt tolerating RA Thrombocytosis - plt 673 (06/10) 667 (06/11) - unclear etiology CAD - s/p RCA stent 2012, 2014 - statin intolerant - BB, ARB, ASA, plavix PAD - s/p LE stent with revascularization 2014 - ASA, plavix HTN - stable - cozaar, metoprolol Attending Attestation The exam, history, and the medical decision-making described in the above note were completed with the assistance of the mid-level provider. I reviewed and agree with the findings presented. I attest that I had a [id number] encounter with the patient on the same day, and personally performed and documented my assessment and findings in the medical record. Patient examined. Assessment and plan formulated with Ness Pendleton PA-C. I agree with the above. Progress Note: Quality VTE Deep Vein Thrombosis/Pulmonary Embolism Present on Admission: No
[2018-06-12 11:57] VITALS: BP 92/56; PULSE 69; RESP 17; TEMP 98.2
--- NOTE | 2018-06-12 14:29 | P.DS ---
DS: Providers Date of admission: 06/10/18 19:05 Primary care physician: Dwight Garza MD Brief History from admission: This is a very pleasant 77-year-old female, a patient of Dr. Garza, who presented to the ER today for shortness of breath. The patient endorses that she has been having increased shortness of breath for the past [address] Garza on Sunday who ordered a chest x-ray showing a moderate right pleural effusion. She was instructed to go to the emergency department however due to the of the patch she did not go. She called Dr. Garza's office today with ongoing shortness of breath and was referred to the emergency department where she has now presented. The patient has a pulse ox of 96% on room air but endorses significant dyspnea. She denies any recent fever, chills , or cough. She does have known history of COPD and is on bronchodilators for this. She reports she was ill with influenza in February and since then her exercise tolerance has been quite poor, especially over the past 3 weeks with difficulty walking throughout the grocery store and with placing housing for sale signs. 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 Garza, who presented to the ER today for shortness of breath. The patient endorses that she has been having increased shortness of breath for the past [address] Garza on Sunday who ordered a chest x-ray showing a moderate right pleural effusion. She was instructed to go to the emergency department however due to the of the patch she did not go. She called Dr. Garza's office today with ongoing shortness of breath and was referred to the emergency department where she has now presented. The patient has a pulse ox of 96% on room air but endorses significant dyspnea. She denies any recent fever, chills , or cough. She does have known history of COPD and is on bronchodilators for this. She reports she was ill with influenza in February and since then her exercise tolerance has been quite poor, especially over the past 3 weeks with difficulty walking throughout the grocery store and with placing housing for sale signs. Pleural Effusion Dyspnea - thoracentesis (06/11) --> 550ml of fluid removed - exudative effusion - pleural fluids cytology pending - echocardiogram (06/11) --> EF 55-60%, no hypokinesis - received solumedrol 125mg (06/10) - duonebs - levaquin - pt tolerating RA - Pt has unexplained weight loss. Per pt her weight has decreased from usual weight of 101 down to 87 pounds - Although CT chest (06/12) was negative, I remained concerened of underlying malignancy. - studies including cytology of pleural fluid are pending. - I would prefer to obtain CT A/P, bu pt refuses - Per pt outpt colonoscopy was unsuccessful Fall 2017 d/t poor prep & pt states that she will NEVER try to have another colonoscopy again. - Pt refuses continued hospitalization and demands immediate discharge. - I disagree with pt's decision, but I will discharge her as requested. - Case d/w pt's PCP, Dr. Dwight Garza. - I did frankly explain to Ms. Everett that she may have undiagnosed cancer. - Case d/w PCP, Dr. Dwight Garza. Pt instucted to f/u with Dr. Garza in 1-2 weeks. Thrombocytosis - plt 673 (06/10) 667 (06/11) - unclear etiology CAD - s/p RCA stent 2012, 2014 - statin intolerant - BB, ARB, ASA, plavix PAD - s/p LE stent with revascularization 2014 - ASA, plavix HTN - stable - cozaar, metoprolol Time Spent with Patient Total time spent providing and/or coordinating discharge services: Quality: VTE Deep Vein Thrombosis/Pulmonary Embolism Present on Admission: No Exam Narrative Exam Narrative: GENERAL: NAD, cachectic CARDIOVASCULAR: Regular rate and rhythm without murmurs, gallops, or rubs. RESPIRATORY: Clear to auscultation. Breath sounds equal bilaterally. No wheezes , rales, or rhonchi. GASTROINTESTINAL: Abdomen soft, non-tender, nondistended. Normal active bowel sounds MUSCULOSKELETAL: Extremities without clubbing, cyanosis, or edema. NEURO: Alert & Oriented x4 to person, place, time, situation. Moves all ext x4 Psych: poor insight. Results Labs on day of discharge: Labs from last 24 hours 06/12/18 06/12/18 05:31 05:31 WBC 11.5 H RBC 3.55 L Hgb 10.1 L Hct 30.5 L MCV 85.8 MCH 28.4 MCHC 33.1 RDW 15.1 Plt Count 671 H MPV 7.4 Neut % (Auto) 93.1 H Lymph % (Auto) 3.6 L [place] % (Auto) 3.2 Eos % (Auto) 0.0 Baso % (Auto) 0.1 Neut # (Auto) 10.7 H Lymph # (Auto) 0.4 L [place] # (Auto) 0.4 Eos # (Auto) 0.0 Baso # (Auto) 0.0 WBC Differential . Differential Comment Auto diff final Sodium 139 Potassium 4.5 Chloride 110 H Carbon Dioxide 19.9 L Anion Gap 9 BUN 18 Creatinine 0.82 Estimated GFR 68 L Random Glucose 143 H Calcium 9.1 Magnesium 2.5 Preliminary micro results at discharge 06/11/18 10:55 Body Fluid Culture - Preliminary Fluid - Pleural fluid No growth in 24 hours Impressions ITS Impressions Chest X-Ray 06/11/18 00:00 CONCLUSION: Resolution of the right pleural-based opacity. No pneumothorax is visualized. Thoracentesis Ultrasound 06/11/18 00:00 CONCLUSION: 1. Uncomplicated thoracentesis. Chest CT 06/12/18 00:00 CONCLUSION: 1. Moderate hyperinflation with minimal pleural thickening on the right. 2. Moderate to severe coronary calcifications 3. There is no pericardial effusion. Discharge Plan Discharge Disposition Patient Disposition: 01 Discharge Home Discharge Condition Condition: Fair Discharge Order Discharge Orders: Discharge Order (Routine); Ordered 06/12/18 Ordered By: Jeremi Oh Discharge Details Anticipated Discharge Date: 06/12/18 Physicians Team Primary Care Provider: Dwight Garza Attending Provider: Jeremi Oh Rxs /Orders / Referrals /Forms Prescriptions: Continue losartan 50 mg Tablet 50 mg PO DAILY RF: 0 clopidogrel [Plavix] 75 mg Tablet 75 mg PO DAILY RF: 0 amlodipine 5 mg Tablet 5 mg PO DAILY RF: 0 aspirin [Aspirin Low Dose] 81 mg Tablet,Delayed Release (Dr/Ec) 81 mg PO DAILY RF: 0 albuterol sulfate [Ventolin HFA] 90 mcg/actuation Hfa Aerosol Inhaler 2 puff INHALATION QID RF: 0 cholecalciferol (vitamin D3) [Vitamin D3] 1,000 unit Capsule 3,000 unit PO DAILY RF: 0 metoprolol tartrate 25 mg Tablet 25 mg PO BID RF: 0 Referrals: Dwight Garza MD [Primary Care Provider] - See Instructions Status ED Status: Left Department
== END 2018-06-12 16:42 | disposition home or self-care (01) ==
LOC: NEDA 16:14 → NEPC 16:14 → N06 21:43
PROVIDERS: ADMIT Hospitalist; ATTEND Hospitalist
DX: J44.9 Chronic obstructive pulmonary disease, unspecified; I25.2 Old myocardial infarction; R26.2 Difficulty in walking, not elsewhere classified; Z86.718 Personal history of other venous thrombosis and embolism; D47.3 Essential (hemorrhagic) thrombocythemia; Z72.0 Tobacco use; R79.89 Other specified abnormal findings of blood chemistry; Z79.01 Long term (current) use of anticoagulants; J90 Pleural effusion, not elsewhere classified; C64.9 Malignant neoplasm of unspecified kidney, except renal pelvis; I10 Essential (primary) hypertension; R06.09 Other forms of dyspnea